=== PATIENT | female | born 1985 | race Caucasian/White ===

== ENCOUNTER → 2018-05-20 | Outpatient (CLI) | payer OTHER ==
--- NOTE | 2018-05-20 17:47 | PDOC ---
PROGRESS NOTES Assessment Seizures versus psychogenic nonepileptic seizures Post concussion syndrome Plan Continue 24-hr monitoring I encourage the patient to give in to any tendency to have a seizure while being monitored, otherwise if I find no organic abnormality, I will be forced to declare maximum medical improvement. Subjective I only have seizures when I am under stress. PHYSICAL EXAM Nonfocal exam Review of Relevant I have reviewed the following items areli (where applicable) has been applied. MEHRAN IVERSON MD May 20, 2018 17:47
--- NOTE | 2018-05-21 15:55 | EEG ---
DATE OF SERVICE: 05/20/2018 EEG NUMBER: [id number] performed on 05/20/2018. OBJECTIVE: The patient is a 32-year-old female with seizure-like episodes. DESCRIPTION: This is a 24-hour video EEG recording. Bipolar and referential montages are available. Activation procedures typically include hyperventilation and intermittent photic stimulation. INTERPRETATION: The waking background consists of 9-10 Hz, 50-100 microvolt activity, symmetrically distributed over parietooccipital regions and reactive to eye opening. Hyperventilation and intermittent photic stimulation are noncontributory. Sleep is achieved showing stages 1, 2, 3, and REM sleep briefly. No abnormalities were observed during sleep. All computer-identified spikes are reviewed in detail and none are epileptic in nature. The patient did have one of her episodes at 22:28:38. Her eyes are fluttering and there are some chewing movements, no abnormal electroencephalogram activity is observed during the episode, however. Another patient event occurs at 10:13:53, the patient appears to be grabbing the head box with her hand and telling the document image technician that she wants to end the test because she is angry. Also, during photic stimulation, the patient was crying. IMPRESSION: Normal 24-hour video EEG recording during which one of the patient's events was recorded showing no epileptic activity. There is no focal, paroxysmal, or epileptiform activity. Findings suggest the probability of psychogenic nonepileptic seizures. Thank you for letting us help with the patient's care. MEHRAN IVERSON MD DR: [email or web address] JOB#: [id number] / [id number]
== END | disposition home or self-care (01) ==
LOC: SLPLAB 05:49
PROVIDERS: ATTEND Psychiatry & Neurology Neurology with Special Qualifications in Child Neurology
DX: G40.89 Other seizures (principal); F07.81 Postconcussional syndrome
CPT/HCPCS: 95951